=== PATIENT | female | born 1960 | race African-American/Black ===

== ENCOUNTER 2016-07-18 20:23 | Emergency (ER) | payer OTHER | END 2016-07-18 23:40 | disposition home or self-care (01) | LOC: ER 20:23 | DX: T78.40XA Allergy, unspecified, initial encounter (principal); Z90.49 Acquired absence of other specified parts of digestive tract; Z79.01 Long term (current) use of anticoagulants; Z91.040 Latex allergy status; Z88.1 Allergy status to other antibiotic agents; Z79.84 Long term (current) use of oral hypoglycemic drugs; Z79.899 Other long term (current) drug therapy | CPT/HCPCS: 96374; 96375; J1200 ==